=== PATIENT | female | born 1950 | race Caucasian/White ===

== ENCOUNTER 2016-06-26 08:15 | Inpatient (IN) | payer BC, OTHER ==
[~2016-06-26] VITALS: Ht 170.2 cm; Wt 74.3 kg
[2016-06-26] VITALS (7 sets, daily range): BP systolic 123–152; BP diastolic 63–75; PULSE 84–97; RESP 16–26; TEMP 97.7–99; O2SAT 95–99
[2016-06-26] MEDS ORDERED: ceFAZolin 2 GM PREMIX 50 ML ONE (08:20)
[2016-06-26] MEDS ORDERED: ceFAZolin INJ 1,000 MG VIAL ONE (08:20)
[2016-06-26] MEDS ORDERED: DIPHTH/TETANUS/ACEL PERTUSSIS (BOOSTER) 0.5 ML VIAL/PFS IM ONE (08:27)
[2016-06-26 08:36] LABS: I-STAT POTASSIUM 3.4 MMOL/L (3.5-4.9)
[2016-06-26 08:38] LABS: AUTOMATED NEUTROPHIL # 8.9 TH/MM3 (1.8-7.7); BASOPHIL # 0.1 TH/MM3 (0-0.2); BASOPHIL % 0.5 % (0.0-2.0); EOSINOPHIL # 0.1 TH/MM3 (0-0.4); EOSINOPHIL % 0.8 % (0.0-4.0); HEMO FLAGS DIFF FINAL; LYMPH % 16.3 % (9.0-44.0); LYMPHOCYTE # 1.9 TH/MM3 (1.0-4.8); MEAN CELL VOLUME 89.2 FL (80.0-100.0); MEAN CORPUSCULAR HGB CONC 33.7 % (32.0-36.0); MONO % 5.7 % (0.0-8.0); NEUT % 76.7 % (16.0-70.0); PLATELET COUNT 181 TH/MM3 (150-450); RED BLOOD COUNT 4.27 MIL/MM3 (4.00-5.30); RED CELL DISTRIBUTION WIDTH 12.8 % (11.6-17.2); WHITE BLOOD COUNT 11.6 TH/MM3 (4.0-11.0)
[2016-06-26 08:47] LABS: APTT (PATIENT) 22.2 SEC (24.3-30.1)
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
[2016-06-26] MEDS ORDERED: ceFAZolin 2 GM PREMIX 50 ML IV ONE (09:00)
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
[2016-06-26] MEDS: SODIUM CHLOR 0.9% 1000 ML INJ 1,000 ML IV SCH ×2 (09:18→19:18)
[2016-06-26] MEDS ORDERED: CHLORHEXIDINE GLUCONATE 2 % 1 PACK (2 CLOTHS) TOP PRN (09:30)
[2016-06-26] MEDS ORDERED: ACETAMINOPHEN 325 MG TAB PO PRN (09:30)
[2016-06-26] MEDS ORDERED: ENALAPRILAT 1.25 MG/ML VIAL IV PRN (09:30)
[2016-06-26] MEDS ORDERED: MISCELLANEOUS NURSING INFORMATION XX SCH (09:30)
[2016-06-26] MEDS ORDERED: ONDANSETRON HCL 4 MG/2 ML VIAL IV PRN (09:30)
[2016-06-26] MEDS ORDERED: SODIUM CHLORIDE 0.9% FLUSH 5 ML FLUSH IVF PRN (09:30)
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
[2016-06-26] MEDS ORDERED: PANTOPRAZOLE SODIUM 40 MG VIAL IVP SCH (10:00)
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
[2016-06-26] MEDS ORDERED: IOHEXOL 350 MG/ML 10 ML VIAL (for RAD DIAG) IV ONE (10:37)
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
[2016-06-26] MEDS ORDERED: ONDANSETRON HCL 4 MG/2 ML VIAL IV PUSH ONE (12:00)
[2016-06-26] MEDS ORDERED: LACTATED RINGER'S 1000 ML INJ 1,000 ML IV ONE (12:00)
[2016-06-26] MEDS ORDERED: PHENYLEPH/NS 1000 MCG/10 ML SYR IV ONE (12:00)
[2016-06-26] MEDS ORDERED: PROPOFOL 200 MG/20 ML AMP IV ONE (12:00)
[2016-06-26] MEDS ORDERED: NORMOSOL R INJ 1,000 ML IV ONE (12:00)
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
[2016-06-26] MEDS ORDERED: LIDOCAINE HCL 2% 50 ML VIAL ONE (16:28)
[2016-06-26] MEDS ORDERED: FAMOTIDINE 20 MG/2 ML VIAL ONE (16:37)
[2016-06-26] MEDS ORDERED: METOCLOPRAMIDE HCL 10 MG/2 ML VIAL ONE (16:37)
[2016-06-26] MEDS ORDERED: DEXAMETHASONE SOD PHOS 4 MG/ML VIAL ONE (16:37)
[2016-06-26] MEDS ORDERED: MIDAZOLAM HCL 2 MG/2 ML VIAL ONE (16:37)
[2016-06-26] MEDS ORDERED: FAMOTIDINE 20 MG/2 ML VIAL IV PUSH ONE (16:38)
[2016-06-26] MEDS ORDERED: METOCLOPRAMIDE HCL 10 MG/2 ML VIAL IVS ONE (16:40)
[2016-06-26] MEDS ORDERED: DICLOFENAC SODIUM 37.5 MG/ML VIAL IV PUSH ONE (16:42)
[2016-06-26] MEDS ORDERED: MIDAZOLAM HCL 2 MG/2 ML VIAL IVS ONE (16:42)
[2016-06-26] MEDS ORDERED: DEXAMETHASONE SOD PHOS 4 MG/ML VIAL IV PUSH ONE (16:44)
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
[2016-06-26] MEDS ORDERED: NEOMYCIN/POLYMYXIN 1 ML G.U. IRRIGANT IR ONE (17:38)
[2016-06-26] MEDS ORDERED: ceFAZolin INJ 1,000 MG VIAL IV ONE (17:39)
[2016-06-26] MEDS ORDERED: fentaNYL CITRATE 250 MCG/5 ML AMP ONE (19:54)
[2016-06-26] MEDS: ENOXAPARIN SODIUM 40 MG/0.4 ML SYRINGE SQ SCH (20:00)
[2016-06-26] MEDS ORDERED: DO NOT ADM ANY ANTICOAGULANT DRUGS XX PRN (20:15)
[2016-06-26] MEDS ORDERED: DOCUSATE SODIUM 100 MG CAP PO SCH (21:00)
[2016-06-26] MEDS: MAGNESIUM HYDROXIDE SUSP 30 ML CUP PO SCH (21:00)
--- NOTE | 2016-06-26 21:04 | EKG ---
Date Performed: 06/26/2016 Time Performed: 16:33:12 PTAGE: 89 years EKG: Sinus rhythm INCOMPLETE RIGHT BUNDLE BRANCH BLOCK NONSPECIFIC T-WAVE ABNORMALITY BORDERLINE ECG NO PREVIOUS TRACING DOCTOR: Te Machuca Interpretating Date/Time 06/26/2016 21:04:02
[2016-06-26] MEDS: ceFAZolin 1,000 MG/NS 100 ML IV SCH ×2 (21:37)
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
[2016-06-26] MEDS: CHLORHEXIDINE GLUCONATE 2 % 1 PACK (2 CLOTHS) TOP SCH (22:59)
[2016-06-27] VITALS (7 sets, daily range): BP systolic 96–117; BP diastolic 53–68; PULSE 87–98; RESP 16–18; TEMP 98.1–98.9; O2SAT 93–99
[2016-06-27] MEDS ORDERED: MORPHINE SULFATE 4 MG/ML INJ IV PRN (02:30)
[2016-06-27] MEDS: oxyCODONE/ACETAMINOPHEN 5 MG/325 MG TAB PO PRN ×2 (02:43→09:18)
[2016-06-27 06:07] LABS: HEMATOCRIT 31.1 % (35.0-46.0); MEAN CELL VOLUME 87.6 FL (80.0-100.0); MEAN CORPUSCULAR HEMOGLOBIN 30.6 PG (27.0-34.0); MEAN CORPUSCULAR HGB CONC 34.9 % (32.0-36.0); RED BLOOD COUNT 3.55 MIL/MM3 (4.00-5.30); WHITE BLOOD COUNT 6.7 TH/MM3 (4.0-11.0)
[2016-06-27 06:08] LABS: AUTOMATED NEUTROPHIL # 4.8 TH/MM3 (1.8-7.7); BASOPHIL % 0.2 % (0.0-2.0); HEMO FLAGS DIFF FINAL; LYMPHOCYTE # 1.2 TH/MM3 (1.0-4.8); MONO % 10.3 % (0.0-8.0); NEUT % 71.5 % (16.0-70.0); PLATELET COUNT 149 TH/MM3 (150-450)
[2016-06-27 06:17] LABS: CALCIUM-PROTEIN CORRECTED 8.5 MG/DL (8.5-10.1); POTASSIUM 3.5 MEQ/L (3.5-5.1); TOTAL BILIRUBIN ADULT 0.3 MG/DL (0.2-1.0)
[2016-06-27] MEDS: SODIUM CHLOR 0.9% 1000 ML INJ 1,000 ML IV SCH (06:29)
[2016-06-27] MEDS: ceFAZolin 1,000 MG/NS 100 ML IV SCH ×6 (06:29→21:34)
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
[2016-06-27] MEDS: DOCUSATE SODIUM 50 MG/SENNA 8.6 MG TAB PO SCH ×2 (09:17→21:35)
[2016-06-27] MEDS: FAMOTIDINE 20 MG TAB PO SCH ×2 (09:17→21:35)
[2016-06-27] MEDS: BACITRACIN TOP OINT 15 GM TUBE TOP SCH ×2 (12:45→21:35)
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
[2016-06-27] MEDS: IBUPROFEN 800 MG TAB PO PRN ×2 (14:33→21:35)
[2016-06-27] MEDS: ENOXAPARIN SODIUM 40 MG/0.4 ML SYRINGE SQ SCH (19:29)
[2016-06-27] MEDS: MAGNESIUM HYDROXIDE SUSP 30 ML CUP PO SCH (21:34)
[2016-06-27] MEDS: CHLORHEXIDINE GLUCONATE 2 % 1 PACK (2 CLOTHS) TOP SCH (21:35)
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
[2016-06-28] VITALS: BP 116/60; PULSE 80; RESP 16; TEMP 99.2; O2SAT 95
[2016-06-28] MEDS: ceFAZolin 1,000 MG/NS 100 ML IV SCH ×6 (06:00→21:00)
[2016-06-28 07:50] VITALS: BP 129/59; PULSE 95; RESP 16; TEMP 96.9; O2SAT 93
[2016-06-28] MEDS: DOCUSATE SODIUM 50 MG/SENNA 8.6 MG TAB PO SCH ×2 (09:00→21:00)
[2016-06-28] MEDS: FAMOTIDINE 20 MG TAB PO SCH ×2 (09:13→21:30)
[2016-06-28] MEDS: BACITRACIN TOP OINT 15 GM TUBE TOP SCH ×2 (09:13→21:31)
[2016-06-28 11:53] VITALS: BP 126/85; PULSE 89; RESP 16; TEMP 96.4; O2SAT 99
[2016-06-28 12:32] VITALS: O2SAT 98
[2016-06-28] MEDS: IBUPROFEN 800 MG TAB PO PRN (13:08)
[2016-06-28] MEDS ORDERED: PLATMIS3 (14:24)
[2016-06-28 15:40] VITALS: BP 148/69; PULSE 87; RESP 16; TEMP 96.9; O2SAT 96
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
--- NOTE | 2016-06-28 18:59 | PD.ORT.PN ---
Subjective Subjective Remarks Patient reports throbbing left hand. Denies paresthesias. Patient states family going home and concerned about being discharged home with in the hospital. Objective Vitals Vital Signs Date Time Temp Pulse Resp B/P Pulse Ox O2 Delivery O2 Flow Rate FiO2 06/28/16 15:40 96.9 87 16 148/69 96 06/28/16 12:32 98 06/28/16 11:53 96.4 89 16 126/85 99 06/28/16 07:50 96.9 95 16 129/59 93 06/28/16 00:00 99.2 80 16 116/60 95 06/27/16 20:00 98.1 88 18 101/61 99 06/27/16 19:46 Room Air I/O 06/27/16 06/27/16 06/27/16 06/28/16 06/28/16 06/28/16 07:00 15:00 23:00 07:00 15:00 23:00 Intake Total 1245 ml 1470 ml 591 ml 240 ml 960 ml Balance 1245 ml 1470 ml 591 ml 240 ml 960 ml Intake Oral 240 ml 760 ml 480 ml 240 ml 960 ml IV Total 1005 ml 710 ml 111 ml # Voids 1 1 1 2 2 # Bowel Movements 0 0 0 0 1 Result Diagram: 06/27/16 0505 06/27/16 0505 Imaging Last 24 hours Impressions Thoracic Spine CT 06/26/16918 Signed Impressions: Service Date/Time: Sunday, June 26, 2016 09:56 - CONCLUSION: Extensive degenerative changes secondary to scoliosis without thoracic spine fracture or paravertebral hematoma. Ameya Blanco MD FACR Aorta CTA 06/26/16918 Signed Impressions: Service Date/Time: Sunday, June 26, 2016 09:56 - CONCLUSION: No evidence of acute vascular injury in the chest abdomen or pelvis. Kevin Newman MD Pelvis X-Ray 06/26/16825 Signed Impressions: Service Date/Time: Sunday, June 26, 2016 08:24 - CONCLUSION: No acute fracture or joint dislocation. Patrice Kimbrough MD Head CT 06/26/16825 Signed Impressions: Service Date/Time: Sunday, June 26, 2016 08:42 - CONCLUSION: 1. Soft tissue swelling left frontal bone without fracture. 2. Intracranial contents unremarkable. Ameya Blanco MD FACR Chest X-Ray 06/26/16825 Signed Impressions: Service Date/Time: Sunday, June 26, 2016 08:24 - CONCLUSION: 1. No acute pulmonary infiltrates. 2. Thoracic scoliosis. Patrice Kimbrough MD Cervical Spine CT 06/26/16825 Signed Impressions: Service Date/Time: Sunday, June 26, 2016 08:42 - CONCLUSION: 1. Extensive degenerative changes. 2. Most significant finding is apparent abnormal T2 vertebral body. Ameya Blanco MD FACR Wrist X-Ray 06/26/16 Signed Impressions: Service Date/Time: Sunday, June 26, 2016 09:55 - CONCLUSION: There is no evidence for a carpus fracture. Ameya Blanco MD FACR Radius/Ulna X-Ray 06/26/16 Signed Impressions: Service Date/Time: Sunday, June 26, 2016 16:04 - CONCLUSION: Anatomic alignment. Ameya Blanco MD FACR Hand X-Ray 06/26/16 Signed Impressions: Service Date/Time: Sunday, June 26, 2016 09:55 - CONCLUSION: 1. Fractures of proximal fourth and fifth phalanges. 2. Degenerative changes in carpus. Ameya Blanco MD FACR Hand X-Ray 06/26/16 Signed Impressions: Service Date/Time: Sunday, June 26, 2016 08:24 - CONCLUSION: 1. Fractures are demonstrated involving the base of the fourth and fifth proximal phalanxes 2. Osteoarthritis. Patrice Kimbrough MD Ankle X-Ray 06/26/16 Signed Impressions: Service Date/Time: Sunday, June 26, 2016 08:24 - CONCLUSION: Limited study. Bony structures are grossly intact. Patrice Kimbrough MD Objective Remarks Splint changed, sitlt m/u/r, <2 sec capillary refill all fingers, able to flex/ extend all fingers. stiffness at pip joints Assessment & Plan Assessment and Plan POD2 s/p I&D severe laceration dorsum left hand over mcp joints, repair partial lacerations to extensor tendons index, middle, ring, and small fingers, open reduction and pinning left ring and small finger proximal phalanx fractures -Elevate left hand, NWB left hand -D/c on oral antibiotics -OT to make dorsal blocking splint left hand to include index through small fingers in AM, then okay to d/c to rehab or home and followup in my office on Kassidy De La Rosa MD Jun 28, 2016 18:59
[2016-06-28] MEDS: ENOXAPARIN SODIUM 40 MG/0.4 ML SYRINGE SQ SCH ×2 (20:00→21:30)
[2016-06-28 20:40] VITALS: BP 110/64; PULSE 86; RESP 17; TEMP 96.5; O2SAT 96
[2016-06-28] MEDS: MAGNESIUM HYDROXIDE SUSP 30 ML CUP PO SCH (21:00)
[2016-06-28] MEDS: CHLORHEXIDINE GLUCONATE 2 % 1 PACK (2 CLOTHS) TOP SCH (21:31)
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
[2016-06-29 00:20] VITALS: BP 106/64; PULSE 83; RESP 16; TEMP 98.3; O2SAT 96
[2016-06-29] MEDS: IBUPROFEN 800 MG TAB PO PRN ×2 (00:22→10:29)
[2016-06-29] MEDS: ceFAZolin 1,000 MG/NS 100 ML IV SCH ×4 (05:06→12:39)
[2016-06-29 07:50] VITALS: BP 139/82; PULSE 80; RESP 16; TEMP 97.4; O2SAT 99
[2016-06-29] MEDS: FAMOTIDINE 20 MG TAB PO SCH ×2 (08:37→09:00)
[2016-06-29] MEDS: DOCUSATE SODIUM 50 MG/SENNA 8.6 MG TAB PO SCH (08:37)
[2016-06-29] MEDS: BACITRACIN TOP OINT 15 GM TUBE TOP SCH (08:38)
[2016-06-29] MEDS ORDERED: WHEEMIS3 (11:13)
[2016-06-29 11:55] VITALS: BP 146/80; PULSE 82; TEMP 97.2; O2SAT 99
[2016-06-29] MEDS ORDERED: IBUP800T23 PO (11:56)
[2016-06-29] MEDS ORDERED: CEPH-460 PO (11:56)
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
== END 2016-06-29 16:23 | disposition home or self-care (01) | DRG 513 ==
LOC: NEPI 08:15 → EDBD 09:07 → NEDA 09:07 → N06A 11:25
PROVIDERS: ADMIT Surgery; ATTEND Surgery
PROC: 0PSV04Z Reposition Left Finger Phalanx with Internal Fixation Device, Open Approach (ICD-10-PCS; 2016-06-26)
PROC: 0PSV04Z Reposition Left Finger Phalanx with Internal Fixation Device, Open Approach (ICD-10-PCS; 2016-06-26)
PROC: 0LQ80ZZ Repair Left Hand Tendon, Open Approach (ICD-10-PCS; principal; 2016-06-26 16:48)
DX: S62.615B Displaced fracture of proximal phalanx of left ring finger, initial encounter for open fracture (principal); S66.321A Laceration of extensor muscle, fascia and tendon of left index finger at wrist and hand level, initial encounter; S66.327A Laceration of extensor muscle, fascia and tendon of left little finger at wrist and hand level, initial encounter; S66.325A Laceration of extensor muscle, fascia and tendon of left ring finger at wrist and hand level, initial encounter; S66.323A Laceration of extensor muscle, fascia and tendon of left middle finger at wrist and hand level, initial encounter; S62.617B Displaced fracture of proximal phalanx of left little finger, initial encounter for open fracture; S61.229A Laceration with foreign body of unspecified finger without damage to nail, initial encounter; S71.132A Puncture wound without foreign body, left thigh, initial encounter; S81.802A Unspecified open wound, left lower leg, initial encounter; Z88.2 Allergy status to sulfonamides; S00.10XA Contusion of unspecified eyelid and periocular area, initial encounter; V95.9XXA Unspecified aircraft accident injuring occupant, initial encounter; Y93.89 Activity, other specified; Y92.520 Airport as the place of occurrence of the external cause; S62.613A Displaced fracture of proximal phalanx of left middle finger, initial encounter for closed fracture
CPT/HCPCS: 70450; 71010; 71275; 72125; 72128; 72170; 73090; 73110; 73130; 73600; 74174; 76000; 80053; 82435; 82565; 82947; 84132; 84295; 84520; 85025; 85610; 85730; 86850; 86900; 86901; 90471; 90715; 93005; 94150; 96374; 99291; G0390; J0690; J1100; J1130; J1650; J2250; J2370; J2405; J2765; J3010; J7030; J7120; L0120; Q9967